=== PATIENT | female | born 1940 | race Caucasian/White ===

== ENCOUNTER 2023-12-15 14:25 | Outpatient (RCR) | payer MEDICARE, OTHER, SELFPAY | END 2023-12-15 23:59 | disposition home or self-care (01) | LOC: RPT 14:25 | PROVIDERS: ATTENDING PHYSICIAN Student in an Organized Health Care Education/Training Program | DX: M48.062 Spinal stenosis, lumbar region with neurogenic claudication (principal); Z73.6 Limitation of activities due to disability | CPT/HCPCS: 97010; 97110; 97140; 97162 ==

== ENCOUNTER 2024-01-12 10:48 | Outpatient (RCR) | payer MEDICARE, OTHER, SELFPAY | END 2024-01-12 23:59 | disposition home or self-care (01) | LOC: RPT 10:48 | PROVIDERS: ATTENDING PHYSICIAN Student in an Organized Health Care Education/Training Program | DX: M48.062 Spinal stenosis, lumbar region with neurogenic claudication (principal); Z73.6 Limitation of activities due to disability | CPT/HCPCS: 97010; 97110; 97112 ==

== ENCOUNTER 2025-02-04 22:28 | Inpatient (IN) | payer MEDICARE, BC, SELFPAY ==
[2025-02-04] VITALS (7 sets, daily range): BP systolic 128–172; BP diastolic 54–64; BMI 24.8
[2025-02-04 17:14] LABS: ALT (SGPT) 18 U/L (0-35); AST (SGOT) 26 U/L (14-36); Albumin 4.4 g/dl (3.5-5.0); Alkaline Phosphatase 74 U/L (38-126); Blood Urea Nitrogen 27 mg/dl (7-17); Calcium 9.7 mg/dl (8.4-10.2); Carbon Dioxide 29 mmol/L (22-30); Chloride 98 mmol/L (98-107); Glucose 185 mg/dl (70-99); Lipase 39 U/L (23-300); Potassium 4.5 mmol/L (3.5-5.1); Sodium 132 mmol/L (135-145); Total Bilirubin 1.5 mg/dl (0.2-1.3); Total Protein 7.5 g/dl (6.3-8.2); eGFR > 60.00
[2025-02-04 17:22] LABS: % Basophils 0.2 % (0-2); % Immature Granulocytes 0.5 % (0-0.5); % Lymphocytes 3.9 % (20.5-51.1); % Monocytes 2.1 % (1.7-9.3); % Neutrophils 93.3 % (42.2-75.2); Absolute Immature Granulocytes 0.1 10^3/uL (0-0.05); Absolute Lymphocytes 0.9 10^3/uL (1.2-3.4); Absolute Monocytes 0.5 10^3/uL (0.1-0.6); Absolute Neutrophils 20.6 10^3/uL (1.4-6.5); Hematocrit 34.9 % (37.0-47.0); Hemoglobin 11.9 g/dL (12.0-16.0); Mean Corp Hgb Conc. 34.1 g/dL (33.0-37.0); Mean Corpuscular Hgb 30.7 pg (27.0-31.0); Mean Corpuscular Volume 90.2 fL (81.0-99.0); Mean Platelet Volume 10.2 fL (7.4-10.4); Nucleated Red Blood Cells % 0 %; Platelet Count 248 10^3/uL (130-400); Red Blood Cell Count 3.87 10^6/uL (4.20-5.40); Red Cell Dist. Width 12.8 % (11.5-14.5); White Blood Cell Count 22.1 10^3/uL (4.8-10.8)
[2025-02-04 17:29] LABS: Urine Albumin 2+ (Neg - Trace); Urine Bilirubin 1+ (Negative); Urine Character Clear (Clear); Urine Color Amber; Urine Glucose Negative (Negative); Urine Ketone 2+ (Negative); Urine Leukocyte 2+ (Negative); Urine Nitrite Positive (Negative); Urine Occult Blood Negative (Negative); Urine Urobilinogen 2+ (Neg - 1+)
[2025-02-04 17:35] LABS: Urine Bacteria Few (Negative); Urine Mucus Few; Urine Red Blood Cell 0-2 /HPF (0-2)
--- NOTE | 2025-02-04 19:19 | ED.GENMED ---
History of Present Illness
General
Chief Complaint: Urinary Symptoms
Time Seen by Provider: 02/04/25 19:10
History of Present Illness
History of Present Illness:
Patient is a 84-year-old woman presenting to the emergency department urinary problems. Patient states for the past few weeks she feels that she is not completely emptying her bladder. Patient's family numbers at bedside states that likely due to
dehydration as today they made her drink 22 ounces and patient did not urinate then. However the urine was dark and orange. She denies any fevers but has been having chills. Feels been having suprapubic pressure. This morning she did have
diarrhea though she does have intermittent constipation and did take a Dulcolax yesterday. No chest pain. No nausea vomiting. No flank pain.
Past History
Past History
ED Past Medical History: HTN and Other (Panic attackes, anxiety. mitral valve prolapse, spinal stenosis, arthritis); Negative Hypercholesterolemia
ED Past Surgical History: Appendectomy and Gynecological (R tube removed)
Social History
Tobacco: Non-smoker
Alcohol: None
Drug: None
Personal:
Living: with family
Employment: Retired
Phy Exam
Physical Exam
Physical Exam:
GENERAL: in no acute distress
HEENT: normocephalic, extraocular movements intact, moist oral mucosa
NECK: normal inspection
RESPIRATORY: no respiratory distress, clear to auscultation bilaterally
CARDIOVASCULAR: regular rate and rhythm
ABDOMEN/: soft, non-distended, tenderness to suprapubic region, no rebound or guarding
EXTREMITIES: non-tender, no edema/swelling
NEUROLOGIC: awake and alert, moves all extremities
SKIN: warm
Course
Orders/Labs/Results
Orders:
Orders
02/04/25 16:47
Complete Blood Count/With Diff Urgent
Comprehensive Metabolic Panel Urgent
Lipase Urgent
02/04/25 17:21
Urinalysis Reflex To Culture Urgent
Date Specimen was Collected: 02/04/25
Time Specimen was Collected: 16:41
Urine Microscopic Reflex Cult Urgent
Urine Culture Urgent
JESSIE Source: U
Specimen Description:
Date Specimen was Collected: 02/04/25
Time Specimen was Collected: 16:41
02/04/25 19:11
CT Abd/pel Without Iv Or Oral Urgent
Reason For Exam: suprapubic pain, urinary changes
02/04/25 19:18
Lactated Ringers [Lr] 1,000 ml IV BOLUS
02/04/25 19:27
Lactic Acid Q4H
Comment: CANCEL 2nd LACTIC ACID IF 1st LACTIC ACID IS LESS THAN 2
02/04/25 21:20
CefTRIAXone [Rocephin] 1,000 mg IV NOW STA
MetroNIDAZOLE 500 MG/100 ML [Flagyl 500 mg] 100 ml IV NOW
Abnormal Lab Results
02/04/25 02/04/25
16:47 17:21
WBC 22.1 H 10^3/uL
(4.8-10.8)
RBC 3.87 L 10^6/uL
(4.20-5.40)
Hgb 11.9 L g/dL
(12.0-16.0)
Hct 34.9 L %
(37.0-47.0)
Abs Immat Gran (auto) 0.1 H 10^3/uL
(0-0.05)
Absolute Neuts (auto) 20.6 H 10^3/uL
(1.4-6.5)
Absolute Lymphs (auto) 0.9 L 10^3/uL
(1.2-3.4)
Neutrophils % 93.3 H %
(42.2-75.2)
Lymphocytes % 3.9 L %
(20.5-51.1)
Sodium 132 L mmol/L
(135-145)
BUN 27 H mg/dl
(7-17)
Glucose 185 H mg/dl
(70-99)
Total Bilirubin 1.5 H mg/dl
(0.2-1.3)
Urine Ketones 2+ A
(Negative)
Urine Nitrite (Reflex) Positive A
(Negative)
Urine Bilirubin 1+ A
(Negative)
Urine Urobilinogen 2+ A
(Neg - 1+)
Leukocyte Esterase Rfl 2+ A
(Negative)
Urine Bacteria (Reflex) Few A
(Negative)
Urine Albumin (Reflex) 2+ A
(Neg - Trace)
02/04/25 16:47
02/04/25 16:47
Vital Signs
Initial and Last Documented VS:
Initial Vital Signs
Temp Pulse Resp BP Pulse Ox
97.8 F 70 18 172/64 100
02/04/25 16:37 02/04/25 16:37 02/04/25 16:37 02/04/25 16:37 02/04/25 16:37
Last Documented Vital Signs
Temp Pulse Resp BP Pulse Ox
97.8 F 70 18 128/55 98
02/04/25 16:37 02/04/25 16:37 02/04/25 16:37 02/04/25 21:00 02/04/25 21:15
MDM/Problems Addressed
Differential Diagnosis Includes:
Patient is a 84-year-old woman presenting to the emergency department with urinary changes and suprapubic pressure. On arrival patient is afebrile. Exam does show some tenderness to the suprapubic region. Differential consist of UTI versus kidney
stone versus diverticulitis. Blood work obtained prior to evaluation does show significant leukocytosis. With the chills that she has been having we will add on lactate. Urine does appear infected. Will obtain CT scan with IV contrast to further
evaluate. Will give fluids.
*Critical Care Note
Total Time (30-74mins, 75-104mins- exclusive of procedures): Not Applicable
Update Note
Update Note:
Lactate normal. Fortunately patient with reaction to IV contrast will obtain dry CT.
CT scan consistent with colitis from the splenic flexure through the rectum. Patient with no history of IBD personally or in the family. Patient's abdominal exam remains pretty much benign. Given that her urine infection as well as infectious
colitis and the white count patient will need admission for IV antibiotics. Will order ceftriaxone and Flagyl given patient's allergy. Discussed with hospitalist accepted patient to their service
ED Attending Note
-
Portions of this chart may have been created with voice recognition software.� Occasional wrong word or��sound alike� substitutions may have occurred due to the inherent limitations of voice recognition software.
Discharge Plan
Departure
Patient Disposition: Admit
Date of Disposition: 02/04/25
Time of Disposition: 21:21
Presentation/result/management discussed w/ accepting MD/DO: Hospitalist
Discharge Problem:
Colitis, Acute UTI
Prescriptions:
No Action
cyclosporine [Restasis] 10 DROPS dropperette
0.4 ml OPHTHALMIC BID
Patient Comments:
States is supposed to be BID but only uses once daily.
ondansetron 4 MG tablet,disintegrating
4 mg PO TIDPRN PRN (Reason: nausea/vomiting) Qty: 12 0RF
Referrals:
Ghassan Valencia DO [Family Provider] -
Interventions
Interventions:
*Risk Screen - Suicide Last Done: 02/04/25 16:40
*General Assessment Last Done: 02/04/25 16:40
*Neglect/Abuse Screening Last Done: 02/04/25 16:40
*ED- Fall Risk Assessment Last Done: 02/04/25 19:10
*ED COVID-19 Vaccine History Last Done: 02/04/25 16:40
ED-Female Genitourinary Assessment Last Done: 02/04/25 19:10
Discharge Date and Time
Print Language: CROATIAN
[2025-02-04] MEDS: LR 1000 IV (19:48)
[2025-02-04 20:00] LABS: Lactic Acid 1.2 mmol/L (0.7-2.0)
[2025-02-04] MEDS: ROCEPHIN 1000 MG IV (21:56)
[2025-02-04] MEDS: FLAGYL 500 MG 100 IV (21:56)
--- NOTE | 2025-02-04 22:01 | HPS.HSE ---
Family Physician
-
Family Physician: Ghassan Valencia, DO
Chief Complaint
-
Urgency / discolored urine
History of Present Illness
Patient is an 84y F with PMH significant for hypertension and anxiety who presents to ED complaining of urinary urgency, discolored urine and lower abdominal discomfort for 1-2 weeks. Patient states that she has also been constipated for a week
or so. She took a Dulcolax last PM and today had diarrhea. She denies any N/V, fevers / chills, etc. No dysuria or flank pain. Patient describes her urine as 'orange' colored. She denies any OTC medications.
Medical History
Past Medical History
Past Medical History: Reports Other
Additional Past Medical History:
Hypertension
Neuropathy
Sciatica
Anxiety / Depression
Past Surgical History: Reports Other
Additional Past Surgical History:
Appendectomy
Tubal Ligation
Uterine Myomectomy
Social History
Tobacco: Non-smoker
Alcohol: None
Drug: None
Family History
Family History: Not pertinent
Allergies / Home Medications
Allergies reflects when Allergies were last updated in [facility] Location, IP.
Home Medications with original date entered in Mobile Location, IP
Allergy/Medication List:
Allergies
Allergy/AdvReac Type Severity Reaction Status Date / Time
epinephrine Allergy Intermediate Unknown Verified 02/04/25 16:39
latex Allergy Intermediate Rash Verified 02/04/25 16:39
Penicillins Allergy Intermediate Hives Verified 02/04/25 16:39
Iodinated Contrast Media Allergy Pharmacy Verified 02/04/25 20:32
to Review
[id number] Reductase Allergy Unknown Verified 02/04/25 16:39
Inhibitor
Home Medications
amlodipine 5 mg tablet 5 mg PO HS 02/04/25
chlorthalidone 25 mg tablet 12.5 mg PO DAILY 02/04/25
losartan 50 mg tablet 50 mg PO DAILY 02/04/25
Review of Systems
-
History Source: Patient
A 12 point ROS was completed and negative except as noted: Yes
Constitutional: Denies Fever or Chills
Respiratory: Denies Cough or Trouble Breathing
Cardiac: Denies Chest Pain or Palpitations
Abdomen/GI: Reports Abdominal Pain, Diarrhea and Constipated; Denies Nausea, Vomiting, Bloody Stools or Black Stools
: Reports Urgency and Dark Urine; Denies Dysuria or Frequency
Neurological: Denies Dizzy or Headache
Psych: Denies Depression or Anxiety
Physical Exam
Vital Signs
Vital Signs
Temp Pulse Resp BP Pulse Ox
97.8 F 70 18 128/55 98
02/04/25 16:37 02/04/25 16:37 02/04/25 16:37 02/04/25 21:00 02/04/25 21:15
Physical Exam
General: Other (84y F in no acute distress. )
HEENT: Moist mucous membranes and PERRLA
Respiratory: Clear; No Wheezes, Rales or Rhonchi
Cardiac: S1/S2 and Regular Rhythm; No Murmur
GI: Soft, Non Tender, Non Distended and Normal Bowel Sounds
Musculoskeletal: No Clubbing, No Cyanosis and No Edema
Neuro: AO x 3
Laboratory Results
-
02/04/25 16:47
02/04/25 16:47
Laboratory Results
Lactic Acid Cancelled 02/04/25 23:30
Total Bilirubin 1.5 mg/dl (0.2-1.3) H 02/04/25 16:47
AST 26 U/L (14-36) 02/04/25 16:47
ALT 18 U/L (0-35) 02/04/25 16:47
Alkaline Phosphatase 74 U/L (38-126) 02/04/25 16:47
Lipase 39 U/L (23-300) 02/04/25 16:47
Impression/Plan
-
A/P: Patient is an 84y F with PMH significant for hypertension who presents to ED complaining of weeks of urinary urgency, lower abdominal pain and diarrhea this AM.
Left-Sided Colitis
Possible UTI
- Admit for further evaluation and treatment.
- Significant leukocytosis (22) with left shift and CT showing colitis from splenic flexure to rectum.
- Likely infectious source. Lactate normal. No prior h/o IBD.
- ? UTI given symptoms; however, paucity of WBC in UA.
- Symptoms may be related to adjacent colon / rectum inflammation.
- IV abx with ceftriaxone and metronidazole for now.
- Check stool studies if further diarrhea.
- Supportive care, IVFs, etc.
- Follow for clinical improvement.
- GI evaluation for additional recommendations.
Benign Hypertension
- Stable. Continue home medications with holding parameters.
DVT Prophylaxis: SCDs
Code Status: Full
--- NOTE | 2025-02-04 23:10 | PTCARENOTE ---
Pt received from ED at 2300 via stretcher. Pt pleasant, AAOx3, VSS, and able to ambulate into room. Pt receptive to room and call bolanos. Pt bed in lowest position and call bolanos within reach. Pt educated on importance of call bolanos usage, pt relays
understanding and cooperation. Will continue with current plan of care.
[2025-02-04 23:23] LABS: Erythrocyte Sed Rate 24 mm/hour (0-20)
[2025-02-05] MEDS: NSS 1000 IV ×3 (00:11→21:40)
[2025-02-05] MEDS: FLAGYL 500 MG 100 IV ×3 (05:02→21:29)
[2025-02-05 07:00] VITALS: BP 138/49
[2025-02-05] MEDS: COZAAR 50 MG PO (08:03)
[2025-02-05] MEDS: Hygroton 12.5 MG PO (08:04)
[2025-02-05 08:13] LABS: Hematocrit 30.1 % (37.0-47.0); Hemoglobin 10.3 g/dL (12.0-16.0); Mean Corp Hgb Conc. 34.2 g/dL (33.0-37.0); Mean Corpuscular Hgb 30.5 pg (27.0-31.0); Mean Corpuscular Volume 89.1 fL (81.0-99.0); Mean Platelet Volume 10.5 fL (7.4-10.4); Platelet Count 219 10^3/uL (130-400); Red Blood Cell Count 3.38 10^6/uL (4.20-5.40); Red Cell Dist. Width 12.6 % (11.5-14.5); White Blood Cell Count 11.3 10^3/uL (4.8-10.8)
[2025-02-05 08:28] LABS: Blood Urea Nitrogen 17 mg/dl (7-17); Calcium 8.8 mg/dl (8.4-10.2); Carbon Dioxide 25 mmol/L (22-30); Chloride 106 mmol/L (98-107); Estimated Creatinine Clearance 50 ml/min; Glucose 103 mg/dl (70-99); Potassium 3.6 mmol/L (3.5-5.1); Sodium 137 mmol/L (135-145); eGFR > 60.00
--- NOTE | 2025-02-05 09:17 | W.PN.HOSP.TC ---
Today's Communication/Plan
-
Cancel GI consult
Advance to low residue
Consult PT
Assessment / Plan
Assessment / Plan
HPI: 84y F with PMH significant for hypertension and anxiety who presents to ED complaining of urinary urgency, discolored urine and lower abdominal discomfort for 1-2 weeks. Patient states that she has also been constipated for a week or so.
She took a Dulcolax last PM and today had diarrhea. She denies any N/V, fevers / chills, etc. No dysuria or flank pain. Patient describes her urine as 'orange' colored. She denies any OTC medications.
Left-Sided Colitis
Possible UTI
- Significant leukocytosis (22) with left shift and CT showing colitis from splenic flexure to rectum.
- Likely infectious source. Lactate normal. No prior h/o IBD.
- ? UTI given symptoms; however, paucity of WBC in UA.
- Symptoms may be related to adjacent colon / rectum inflammation.
- Continue IV abx with ceftriaxone and metronidazole
- No diarrhea since admission, unable to send stool studies. Follow-up on urine culture.
- Patient is improving clinically, cancel GI consult, advance to low residue diet
Chronic urinary retention
- Bladder scan protocol, follow-up with urogyn outpatient
Benign Hypertension
- Stable. Continue home medications with holding parameters.
DVT Prophylaxis: Subcu Lovenox
Code Status: Full
Updated daughter at bedside 02/05
Total time spent to see the patient on the floor, examine the patient, review data and lab results, discuss treatment plan with patient, nursing staff around 40 minutes.
Physical Exam
General: No acute distress
HEENT: Normocephalic, Atraumatic, EOMI, MMM
Respiratory: Clear to Auscultation bilaterally
Cardiac: Normal S1/S2, Regular Rate and Rhythm
GI: Soft, Nontender, Nondistended, Normal Bowel Sounds
Extremities: No Clubbing, Cyanosis, or Edema
Neuro: Nonfocal/Grossly Intact
Psych: Calm, Cooperative
Derm: No Visible lesions
Anticipated Discharge: Within 24 hours
Subjective/Interval History
-
Date of Service: February 05, 2025
Patient reports suprapubic fullness. Denies nausea, vomiting. Diarrhea resolved. She tolerated her full liquids. She denies dysuria. No fever, no chest pain, no shortness of breath.
Objective Data
-
Labs:
Laboratory Results
02/05/25
06:49
WBC 11.3 H
Hgb 10.3 L
Hct 30.1 L
Plt Count 219
Sodium 137
Potassium 3.6
Chloride 106
Carbon Dioxide 25
BUN 17
Creatinine 0.7
Glucose 103 H
Calcium 8.8
Vital Signs:
Vital Signs
Temp Pulse Resp BP Pulse Ox
97.7 F 68 20 138/49 97
02/05/25 07:00 02/05/25 08:04 02/05/25 07:00 02/05/25 08:04 02/05/25 07:00
I&O
02/04/25 02/05/25 02/06/25
06:59 06:59 06:59
Intake Total 1040 / 1040
Balance 1040 / 1040
--- NOTE | 2025-02-05 13:14 | CM ---
Patient seen bedside w/ daughter, initial assessment completed. Patient is an 84y F with PMH significant for hypertension and anxiety who presents to ED complaining of urinary urgency, discolored urine and lower abdominal discomfort.
Patient resides alone at [facility], patient has a 1st flr apartment- no steps to enter. Has a rollator but does not use frequently. Has grab bar in the bathroom. No SNF/HC hx reported. OP therapy in the past
Address, points of contact and insurance verified
PCP: Ghassan Valencia
Pharmacy: [facility]
Daughter and patient hoping for d/c tomorrow
PT ordered, will watch for any recommendations
Plan: Home, will watch for any needs
[2025-02-05 14:10] VITALS: BP 152/60; PULSE 77; O2SAT 97
[2025-02-05 15:00] VITALS: BP 126/52
[2025-02-05] MEDS: LOVENOX 40 MG SC (17:15)
[2025-02-05] MEDS: NORVASC 5 MG PO (21:27)
[2025-02-05] MEDS: STERILE WATER FOR INJECTION 10 ML IV (21:28)
[2025-02-05] MEDS: ROCEPHIN 1000 MG IV (21:29)
[2025-02-05 23:16] VITALS: BP 141/64
[2025-02-06] MEDS: FLAGYL 500 MG 100 IV (05:15)
[2025-02-06 07:00] VITALS: BP 144/55
[2025-02-06 07:48] LABS: Hemoglobin 10.5 g/dL (12.0-16.0); Mean Corp Hgb Conc. 33.9 g/dL (33.0-37.0); Mean Corpuscular Hgb 30.7 pg (27.0-31.0); Mean Corpuscular Volume 90.6 fL (81.0-99.0); Mean Platelet Volume 10.7 fL (7.4-10.4); Platelet Count 210 10^3/uL (130-400); Red Blood Cell Count 3.42 10^6/uL (4.20-5.40); Red Cell Dist. Width 12.9 % (11.5-14.5); White Blood Cell Count 7.7 10^3/uL (4.8-10.8)
[2025-02-06] MEDS: NSS 1000 IV (07:58)
[2025-02-06] MEDS: Hygroton 12.5 MG PO (08:01)
[2025-02-06] MEDS: COZAAR 50 MG PO (08:01)
[2025-02-06 08:20] LABS: Blood Urea Nitrogen 11 mg/dl (7-17); Calcium 8.4 mg/dl (8.4-10.2); Carbon Dioxide 25 mmol/L (22-30); Chloride 108 mmol/L (98-107); Estimated Creatinine Clearance 59 ml/min; Glucose 96 mg/dl (70-99); Magnesium 1.7 mg/dl (1.6-2.3); Potassium 3.3 mmol/L (3.5-5.1); Sodium 139 mmol/L (135-145); eGFR > 60.00
--- NOTE | 2025-02-06 08:46 | W.PN.HOSP.TC ---
Addendum entered and electronically signed by Skyler Dunn MD 02/06/25 13:07:
#Hypokalemia
Potassium 3.3 today, patient received 40 mEq of p.o. potassium chloride
Magnesium normal
Patient counseled to eat bananas, potatoes, and foods high in potassium
Original Note:
Today's Communication/Plan
-
Medically stable for discharge on cefdinir and Flagyl
Assessment / Plan
Assessment / Plan
HPI: 84y F with PMH significant for hypertension and anxiety who presents to ED complaining of urinary urgency, discolored urine and lower abdominal discomfort for 1-2 weeks. Patient states that she has also been constipated for a week or so.
She took a Dulcolax last PM and today had diarrhea. She denies any N/V, fevers / chills, etc. No dysuria or flank pain. Patient describes her urine as 'orange' colored. She denies any OTC medications.
Left-Sided Colitis
Possible UTI
- Significant leukocytosis (22) with left shift and CT showing colitis from splenic flexure to rectum.
- Likely infectious source. Lactate normal. No prior h/o IBD.
- ? UTI given symptoms; however, paucity of WBC in UA.
- Symptoms may be related to adjacent colon / rectum inflammation.
- No diarrhea since admission, unable to send stool studies. Urine culture still pending
- Patient is improving clinically, no GI consult needed
- Symptoms resolved on Rocephin and Flagyl, tolerating low residue diet, afebrile, leukocytosis resolved
- Medically stable for discharge on cefdinir and Flagyl to complete a 7-day course, follow-up with PCP in 1 week
Chronic urinary retention
- Bladder scan protocol, follow-up with urogyn outpatient
Benign Hypertension
- Stable. Continue home medications with holding parameters.
DVT Prophylaxis: Subcu Lovenox
Code Status: Full
Updated daughter at bedside 02/05
Physical Exam
General: No acute distress
HEENT: Normocephalic, Atraumatic, EOMI, MMM
Respiratory: Clear to Auscultation bilaterally
Cardiac: Normal S1/S2, Regular Rate and Rhythm
GI: Soft, Nontender, Nondistended, Normal Bowel Sounds
Extremities: No Clubbing, Cyanosis, or Edema
Neuro: Nonfocal/Grossly Intact
Psych: Calm, Cooperative
Derm: No Visible lesions
Anticipated Discharge: Today
Subjective/Interval History
-
Date of Service: February 06, 2025
Patient reports abdominal pain has resolved. She is tolerating her low residue diet. Denies nausea, vomiting, diarrhea. No fever. No chest pain, no shortness of breath. She is eager for discharge today.
Objective Data
-
Labs:
Laboratory Results
02/06/25
06:39
WBC 7.7
Hgb 10.5 L
Hct 31.0 L
Plt Count 210
Sodium 139
Potassium 3.3 L
Chloride 108 H
Carbon Dioxide 25
BUN 11
Creatinine 0.6
Glucose 96
Calcium 8.4
Vital Signs:
Vital Signs
Temp Pulse Resp BP Pulse Ox
98.0 F 66 20 144/55 97
02/06/25 07:00 02/06/25 07:00 02/06/25 07:00 02/06/25 07:00 02/06/25 07:00
I&O
02/05/25 02/06/25 02/07/25
06:59 06:59 06:59
Intake Total 1040 / 1040 3020 / 3020
Balance 1040 / 1040 3020 / 3020
[2025-02-06] MEDS: KCL 40 MEQ PO (09:11)
--- NOTE | 2025-02-06 11:20 | W.DCSUMMARY ---
Discharge Summary
Discharge Data
Date of Admission: 02/04/25
Date of Discharge: 02/06/25
-
Pending Results: No
Hospital Course
Discharge diagnosis:
Acute left-sided colitis
Chronic urinary retention
Essential hypertension
Hypokalemia
CT abd/pelvis:
IMPRESSION: As described, the finding suggesting colitis extending contiguously from the splenic flexure through the rectum. Infectious colitis would be a leading consideration, with inflammatory bowel disease a differential consideration. Ischemic
colitis could be considered, but felt to be less likely.
Status post appendectomy. No evidence for bowel obstruction. No evidence of free intraperitoneal air.
No significant abnormality of the kidneys or urinary bladder.
Bony degenerative changes as described.
Hospital course:
84-year-old female with a past medical history of hypertension and chronic urinary retention was admitted for acute left-sided colitis. Patient was treated with IV Rocephin and Flagyl. Her urine analysis was initially concerning for infection.
However urine cultures returned as mixed yolette. After several days, her leukocytosis resolved. Her abdominal pain also resolved. She tolerated a low residue diet.
Patient has chronic urinary retention, and can follow-up with urology in the office. She was able to void while in the hospital.
Patient had hypokalemia. This was repleted.
Patient is medically stable for discharge. She will be discharged on cefdinir and Flagyl to complete a 7-day course. She needs to follow-up with her primary care doctor in 1 week.
Disposition: Home with home care
Discharge planning: Required 39 minutes
Discharge Plan
-
Patient Disposition: Home (Routine Discharge)
Discharge Diagnosis/Procedures: Colitis, possible urinary tract infection, hypokalemia/low potassium
Condition: Good
Diet: Low Fiber
Activity: As tolerated
Driving Restrictions: As prior to admission
Other Services: PT
Activity Restrictions/Additional Instructions:
Physical therapy recommends outpatient physical therapy�paper prescription provided.
Follow-up with urology in the office for urinary retention.
Follow-up with your primary care doctor in 1 week.
Referrals:
Ghassan Valencia DO [Family Provider] - in one week
Kobe Araya MD [Active] - in one to two weeks
Prescriptions:
New
cefdinir 300 mg capsule
300 mg PO BID 5 Days Qty: 10 0RF
metronidazole 500 mg tablet
500 mg PO Q8H 5 Days Qty: 15 0RF
Continued
losartan 50 mg Tablet
50 mg PO DAILY
chlorthalidone 25 mg Tablet
12.5 mg PO DAILY
amlodipine 5 mg Tablet
5 mg PO HS
Discharge Orders:
Discharge Patient (As Directed); Ordered 02/06/25
Ordered By: Skyler Dunn
Discharge Date and Time
Discharge Date/Time: 02/06/25 12:40
Print Language: IRAQI
--- NOTE | 2025-02-06 11:53 | CM ---
Patient stable for d/c.
Met w/ patient and daughter bedside, agreeable to d/c today
Therapy rec OP therapy, patient agreeable. Hospitalist provided script
IMM verbally reviewed, copy given to patient, copy on chart
Plan: Home, w/ OP therapy
[2025-02-06] MEDS: OMNICEF 300 MG PO (11:59)
[2025-02-06] MEDS: FLAGYL 500 MG PO (11:59)
== END 2025-02-06 12:40 | disposition home or self-care (01) | DRG 386 ==
LOC: 4 WEST ACU 22:28
PROVIDERS: Student in an Organized Health Care Education/Training Program; ADMITTING PHYSICIAN Hospitalist; ATTENDING PHYSICIAN Family Medicine; EMERGENCY PHYSICIAN Student in an Organized Health Care Education/Training Program; FAMILY PHYSICIAN Family Medicine
DX: K51.50 Left sided colitis without complications (principal); A09 Infectious gastroenteritis and colitis, unspecified; N39.0 Urinary tract infection, site not specified; E86.0 Dehydration; K59.00 Constipation, unspecified; F41.9 Anxiety disorder, unspecified; R33.9 Retention of urine, unspecified; I10 Essential (primary) hypertension; M19.90 Unspecified osteoarthritis, unspecified site; E87.6 Hypokalemia; I34.1 Nonrheumatic mitral (valve) prolapse; G62.9 Polyneuropathy, unspecified; F32.A Depression, unspecified; R39.15 Urgency of urination; Z60.2 Problems related to living alone; Z90.49 Acquired absence of other specified parts of digestive tract; Z98.51 Tubal ligation status; Z88.0 Allergy status to penicillin; Z88.8 Allergy status to other drugs, medicaments and biological substances; Z91.041 Radiographic dye allergy status; Z91.040 Latex allergy status
CPT/HCPCS: 74176; 80048; 80053; 81003; 81015; 83605; 83690; 83735; 84100; 85025; 85027; 85652; 86140; 87086; 96360; 97162; 99285